=== PATIENT | female | born 1980 | race Caucasian/White ===

== ENCOUNTER 2020-04-01 12:31 | Outpatient (CLI) | payer BC ==
--- NOTE | 2020-04-01 13:17 | RAD ---
LUMBAR SPINE SERIES 4 VIEWS: Date: 04/01/2020 HISTORY: Follow-up surgery. FINDINGS: Postoperative changes of the spine are noted. These include bilateral pedicle screws extending from t he L3 to the S1 level. There are disc implants at the intervening disc levels and anterior fusion at the L5-S1 level. IMPRESSION: Postop changes of the spine. POS: OFF
== END 2020-04-01 12:32 | disposition home or self-care (01) ==
LOC: NAV RAD 12:31
DX: M48.062 Spinal stenosis, lumbar region with neurogenic claudication (principal); Z98.890 Other specified postprocedural states
CPT/HCPCS: 72110

== ENCOUNTER 2020-05-16 17:24 | Outpatient (CLI) | payer BC ==
--- NOTE | 2020-05-16 17:52 | RAD ---
EXAM: XR Lumbar Spine 2 Or 3 View DATE: 05/16/2020 5:33 PM INDICATION: Postoperative follow-up for lumbar back surgery performed on February 18, 2020 COMPARISON: April 01, 2020 FINDING: Overlying grid artifact limits the AP projection. The patient also has an external belt or compression devices in places slightly limits image detail on the subsequent projections. There is slight rightward curvature of the upper lumbar spine which is stable. The posterior lateral spinal in strumentation consisting of pedicle screws with interconnecting rods are stable without evidence of hardware failure. The intervertebral disc cages at L3-4, L4-5 and L5-S1 do not appear altered in posi tion. There is an anterior lumbar interbody fixation plate at L5-S1 that appears stable. No acute fracture is evident. Vascular clips overlying the sacral promontory, left anterior hemipelvis and lef t sacral ala are stable. The bowel gas pattern is unobstructed. IMPRESSION:Stable postoperative lumbar spine.
== END 2020-05-16 17:25 | disposition home or self-care (01) ==
LOC: NAV RAD 17:24
DX: Z47.89 Encounter for other orthopedic aftercare (principal); Z98.1 Arthrodesis status
CPT/HCPCS: 72100

== ENCOUNTER 2020-08-27 17:04 | Outpatient (CLI) | payer BC | END 2020-08-27 17:05 | disposition home or self-care (01) | LOC: NAV RAD 17:04 | PROVIDERS: ATTEND Orthopaedic Surgery | DX: Z47.89 Encounter for other orthopedic aftercare (principal); M47.816 Spondylosis without myelopathy or radiculopathy, lumbar region; M43.16 Spondylolisthesis, lumbar region; Z98.1 Arthrodesis status | CPT/HCPCS: 72100 ==

== ENCOUNTER 2023-10-29 18:17 | Emergency (ER) | payer BC, OTHER ==
[2023-10-29] MEDS ORDERED: Ketorolac Tromethamine 60 MG/2 ML VIAL ONE (19:08)
== END 2023-10-29 21:12 | disposition home or self-care (01) ==
LOC: NAV ERS 18:17
DX: S16.1XXA Strain of muscle, fascia and tendon at neck level, initial encounter (principal); S39.012A Strain of muscle, fascia and tendon of lower back, initial encounter; I10 Essential (primary) hypertension; F17.290 Nicotine dependence, other tobacco product, uncomplicated; Z79.899 Other long term (current) drug therapy; V43.52XA Car driver injured in collision with other type car in traffic accident, initial encounter
CPT/HCPCS: 72125; 72131; 96372; J1885

== ENCOUNTER 2023-10-31 14:05 | Outpatient (CLI) | payer BC ==
[~2023-10-31 14:05] MED LIST: Iopamidol 370 76% 100 ML VIAL ONE
== END 2023-10-31 14:06 | disposition home or self-care (01) ==
LOC: NAV CT 14:05
PROVIDERS: ATTEND Student in an Organized Health Care Education/Training Program
DX: J98.59 Other diseases of mediastinum, not elsewhere classified (principal)
CPT/HCPCS: 71260; Q9967